=== PATIENT | female | born 1990 | race Caucasian/White ===

== ENCOUNTER → 2023-11-13 08:36 | Outpatient (REF) | payer BC, SELFPAY | LOC: RCS 08:36 | PROVIDERS: ATTENDING PHYSICIAN Nurse Practitioner | DX: R00.2 Palpitations (principal) | CPT/HCPCS: 93225; 93226 ==

== ENCOUNTER → 2025-03-04 08:46 | Outpatient (REF) | payer OTHER, SELFPAY | LOC: WDC 08:46 | PROVIDERS: ATTENDING PHYSICIAN Student in an Organized Health Care Education/Training Program | DX: N63.10 Unspecified lump in the right breast, unspecified quadrant (principal); N63.11 Unspecified lump in the right breast, upper outer quadrant | CPT/HCPCS: 76642; 77062; 77066 ==

== ENCOUNTER → 2025-04-15 12:10 | Outpatient (REF) | payer OTHER, SELFPAY ==
--- NOTE | 2025-04-15 14:46 | OID.BR.INTR ---
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
- -
Date of Contact: 04/15/25
Met with patient. Will follow up as needed per protocol.
== END ==
LOC: WDC 12:10
PROVIDERS: ATTENDING PHYSICIAN Surgery
DX: N63.11 Unspecified lump in the right breast, upper outer quadrant (principal)
CPT/HCPCS: 19083; 88305; A4648